=== PATIENT | male | born 1985 | race Two or more races ===

== ENCOUNTER 2024-01-10 19:58 | Outpatient (CLI) | payer SELFPAY | END 2024-01-10 19:59 | disposition home or self-care (01) | LOC: AMB 01-26 06:42 | PROVIDERS: Visit Provider Emergency Medicine Emergency Medical Services | DX: R07.89 Other chest pain (principal); M54.9 Dorsalgia, unspecified | CPT/HCPCS: A0998 ==

== ENCOUNTER 2024-01-10 23:11 | Emergency (ER) | payer SELFPAY ==
[2024-01-10 23:18] VITALS: BP 129/84; PULSE 87; RESP 16; TEMP 36.6; O2SAT 97; BMI 25.7
--- NOTE | 2024-01-11 00:06 | CRLHL7_ITS ---
For Patients: As a result of the Cures Act, medical imaging exams and procedure reports are released immediately into your electronic medical record. You may view this report before your referring provider. If you have questions, please contact your health care provider. INDICATION: Chest pain TECHNIQUE: Chest radiograph 1 view COMPARISON: None FINDINGS: Mediastinum: The mediastinum is normal in appearance. The heart silhouette is normal in size and morphology. Lung: Both lungs are unremarkable in appearance. No sign of pleural effusion seen. No pneumothorax is identified. Bone and Soft tissue: Unremarkable for age. IMPRESSION: 1. No acute cardiopulmonary disease is seen. Dictated by: Jey Cole MD @ 01/11/2024 01:02:24 (Electronically Signed)
--- OUTSIDE RECORDS SUMMARY | 2024-01-11 00:20 | XMS_ITS | Data Portability ---
Author Organization [facility] [employer] [facility] Address [address] [place] [address] [facility] [place] [id number] Assessment No assessment recorded. Plan of Treatment Reminders Order Date Submit Date Provider Last Modified By Organization Details Last Modified Time Details Appointments None recorded. Lab H pylori Ag, qual immunoassay , stool 2021 [facility] Not available 15:01:35 fecal occult blood, stool 2021 [facility] Not available 00:15:48 Referral None recorded. Procedures None recorded. Surgeries None recorded. Imaging None recorded. Medication Orders omeprazole 40 mg capsule,del ayed release [address] [facility] [place], [address] [place], [address], 18:52:52 Florajen Acidophilus 20 billion cell capsule [address] [facility] [place], [address], [place], [address], 12:32:40 Florajen Acidophilus 20 billion cell capsule [address] [facility] [place], [address], [place], [address], 15:35:56 omeprazole 40 mg capsule,del ayed release [address] [facility] [place], [address] [place], [address], 16:13:45 Patient TargetsNo targets recorded. Patient Instructions Encounter Date Encounter Id Patient Instructions Last Modified By Organization Details Last Modified Time 06/21/2021 [id number] eat slowly, chew food, avoid spicy foods, vaccine available kev Not available 06/21/2021 18:47:25 07/19/2021 [id number] continue omeprazol with Florajen kev Not available 07/19/2021 20:15:52 09/06/2021 [id number] refills available, take meds as needed, rtc prn kev Not available 09/06/2021 19:03:05 doing well kev Not available 09/06 19:03:23 Reason for Referral None Reported. Results Created Date Observation Date Name Description Value Unit Range Abnormal Flag LastModifiedBy Organization Detail LastModifiedTime Result Notes None recorded. Problems Name Status Onset Date Resolution Date Notes Provider Name and Address Organization Details Recorded Time Abdominal pain Active 07/19/19 22 Moustapha Hancock MD [address] [place], [address], [facility] [employer] 07/19/2021 20:12:39 Problem Notes None recorded. Medical Equipment None Reported. Allergies No known drug allergies Medications Name Sig Start Date Stop Date Status Note LastModified by Organization Details LastModified Time omeprazole 40 mg capsule,mariel yed release TAKE ONE CAPSULE BY MOUTH EVERY DAY active Not Available Not Available No t Available hydrocortiso ne 2.5 % topical cream 06/21 completed Not Available Not Available Not Available Florajen Acidophilus 20 billion cell capsule TAKE 1 CAPSULE BY ORAL ROUTE. 2021 active Not Available Not Available Not Avai lable Florajen Digestion 15 billion cell capsule TAKE 1 CAPSULE BY ORAL ROUTE. 2022 active Not Available Not Available Not Avai lable Vitals Date Recorded Body weight Systolic blood pressure Diastolic blood pressure Provider Name and Address Organization Details Last Updated DateTime 06/21/2021 92159.04 g 122 mm[Hg] 70 mm[Hg] Moustapha Hancock MD [address] [facility] [place], [address] [employer] 06/21/2021 18:44:14 Date Recorded Body weight Systolic blood pressure Diastolic blood pressure Provider Name and Address Organization Details Last Updated DateTime 07/19/2021 28710.22 g 107 mm[Hg] 64 mm[Hg] Moustapha Hancock MD [address] [place], [address] 07/19/2021 20:12:01 Social History None recorded. Functional Status None recorded. Mental Status None recorded. Family History Nothing Reported. Medical History No medical history recorded. Past Encounters Encounter ID Performer Location Encounter Start Date Encounter Closed Date Diagnosis/Indication Diagnosis SNOMED-CT Code [id number] [place] NP [facility] [facility] [address] [place] [address] 01/07/2020 14:31:02 01/07/2020 14:32:05 Exposure to SARS-CoV-2 [id number] Moustapha Hancock MD [facility] [address] [place] [address] 06/21/2021 18:13:57 06/21/2021 18:45:49 Mild dietary indigestion [id number] Moustapha Hancock MD [facility] [address] [place] [address] 07/19/2021 19:14:32 07/19/2021 19:33:58 Mild dietary indigestion [id number] Moustapha Hancock MD [facility] [address] [place] [id number] 09/06/2021 18:22:35 09/06/2021 20:08:03 Indigestion [id number] Health Concerns Section Related Observation LastModified by Organization Detai ls LastModified Time None Recorded Concern Status LastModified by Organization Details LastModified Time None Recorded Advance Directives Directive None Recorded Payers Encounter Date Sequence Insurance Name Policy Number Policy Jack Covered Member ID Jack Member ID Guarantor Name 01/07/2020 SLIDING FEE SCHEDULE - DISCOUNT Sal Carson 06/21/2021 SLIDING FEE SCHEDULE - DISCOUNT Sal Carson 07/19/2021 SLIDING FEE SCHEDULE - DISCOUNT Sal Carson 09/06/2021 SLIDING FEE SCHEDULE - DISCOUNT Sal Carson Notes Date Note Type Note Provider Name and Address Organization Details Recorded Time 06/21/2021 text/html HPI Notes: about a year of bloating and indigestion, constipated, no melena, no weight loss Moustapha Hancock MD [address] [place], [address], [facility] [employer] 06/21/2021 19:44:05 07/19/2021 text/html HPI Notes: Abdominal Pain Reported by patient. Notes: no magaly loss, bleeding or melena discomfort is in left upper quadrant, unrelated to foods, omeprazole hasn't helped, Moustapha Hancock MD [address] [facility] [place], [address], [facility] 07/19/2021 20:16:07 09/06/2021 text/html HPI Notes: feeling better, no weight loss Moustapha Hancock MD [address] [facility] [place], [address], [facility] 09/06/2021 19:05:09
--- OUTSIDE RECORDS SUMMARY | 2024-01-11 00:20 | XMS_ITS | Clinical Summary ---
Author Organization [facility] Address [place], [place] [address] Care Team Providers Care Vehicle Assembly Inspector Name Role Phone Mónica Delgado DO Primary Care Provider Allergies No known active allergies Medications Medication Sig Dispensed Refills Start Date End Date Status ibuprofen (ADVIL; MOTRIN) 600 mg tablet Take 600 mg by mouth 3 times daily if needed. Maximum of 3200 mg in 24 hours. Active hydrocortisone 2.5% creamIndications:Ex ternal hemorrhoid Apply topically to affected area(s) 2 times daily. 30 g 11/18/2020 Active psyllium powdIndications:Con stipation, acute Mix 1 tsp in liquid then take by mouth once daily if needed for Constipation. 1 Container 11 11/18/2020 Active Active Problems Problem Noted Date Diagnosed Date Acute medial meniscal tear 12/11/2014 Pain medication agreement 11/18/2012 Overview: Controlled substance agreement for Percocet 5/325mg 1-2 tab every 4hrs on file and signed 11/06/2012. Designated pharmacy:[email or web address] Prescribing physician: Jluis Goodwin MD and Bev Patten PA-C Diagnosis: S/P ACL reconstruction ACL tear 10/30/2012 Immunizations Name Administration Dates Next Due Tdap 10/21/2012 Social History Tobacco Use Types Packs/Day Years Used Date Smoking Tobacco: Former Cigarettes Q uit: 03/14/2011 Smokeless Tobacco: Never Tobacco Cessation:Counseling Given: Yes Alcohol Use Standard Drinks/Week Comments Not Currently 0 (1 standard drink = 0.6 oz pur e alcohol) occasional Social Connections Answer Date Recorded Frequency of Communication with Friends and Fami ly Not on file 06/11/2021 Financial Resource Strain Answer Date R ecorded Difficulty of Paying Living Expenses Not on file 06/11/2021 Difficulty of Paying Living Expenses Not on file 06/11/2021 Sex and Gender Information Value Date Recorded Sex Assigned at Not on file Gender Identity Not on file Sexual Orientation Not on file Obstetrics History Last Filed Vital Signs Vital Sign Reading Time Taken Comments Blood Pressure 106/68 11/18/2020 2:16 PM CDT Pulse 81 11/18/2020 2:16 PM CDT Temperature 36.7 ??C (98.1 ??F) 06/17/2019 4:25 PM CS T Respiratory Rate 16 06/17/2019 4:25 PM ROCKET SCIENTIST Oxygen Saturation 97% 11/18/2020 2:16 PM CDT Inhaled Oxygen Concentration - - Weight 64.4 kg (142 lb) 11/18/2020 2:16 PM CDT Height 160 cm (5' 3) 06/17/2019 4:25 PM ROCKET SCIENTIST Body Mass Index 25.15 06/17/2019 4:25 PM ROCKET SCIENTIST Plan of Treatment Health Maintenance Due Date Last Done Comments Depression screening for age 12+ 1995 HIV for age 15-65 10/07/1998 Hepatitis C screening for ag e 18-79 10/07/2001 Lipids for age 35-44 10/07/2018 BMI (ht and wt on same day) for age 18+ 06/17/2020 06/17/2019, 10/31/2016 Tetanus booster 10/21/2022 10/21/2012 COVID-19 vaccine series ( season) 2023 Influenza for age 9-49 02/10/2024 Tdap Completed 10/21/2012 Pneumococcal series for age 6-64 Aged Out No longer eligible b ased on patient's age to complete this topic Medical Devices Implanted Type Area Bag Sewer Device Identifier Shelf Expiration Date Model / Serial / Lot [id number] llartendonpresha ped10/10mm Implanted:Qty: 1 on 10/30/2012 at [facility] Explanted:at [facility] (Quantity not on file) Left: Knee [employer] 10/07/2016 [id number] / [id number] / Description:PATELLAR TENDON PRESHAPED 10/10MM Hyacinth Advance Interference Screw 8x23mm Implanted:Qty: 1 on 10/30/2012 at [facility] Left: Knee [id number] / / [id number] Description:HYACINTH ADVANCE INTERFERENCE SCREW 8X23MM Hyacinth Advance Interference Screw 9x23mm Implanted:Qty: 1 on 10/30/2012 at [facility] Left: Knee [id number] / / [id number] Description:HYACINTH ADVANCE INTERFERENCE SCREW 9X23MM [id number] 034tendon 1-51uyr21-08.5mm Mtf Patella W/Bone Blocks [[id number]] Implanted:Qty: 1 on 12/17/2014 at [facility] Left: Knee Musculoskeletal [employer]plant 12/19/2018 [id number]# / [id number] / Screw Soft Tissue 9x25mm Genesys Matryx Interference - [id number] Implanted:Qty: 1 on 12/17/2014 at [facility] Left: Knee [employer] [id number] / / [id number] Screw Soft Tissue 9x25mm Genesys Matryx Interference - [id number] Implanted:Qty: 1 on 12/17/2014 at [facility] Left: Knee [employer] [id number]# / / [id number] Advance Directives * Full Code (Latest Code Status on File) Date Activated Date Inactivated Comments 12/17/2014 12:05 PM 12/17/2014 3:23 PM Question Answer Comments Code Status Discussion: Per Existing Order * Full Code Date Activated Date Inactivated Comments 12/17/2014 8:24 AM 12/17/2014 12:05 PM * Full Code Date Activated Date Inactivated Comments 10/30/2012 12:41 PM 10/30/2012 5:02 PM * Full Code Date Activated Date Inactivated Comments 10/30/2012 9:10 AM 10/30/2012 12:41 PM Care Teams Vehicle Assembly Inspector Relationship Specialty Start Date End Date Mónica Delgado DO [address] [place] [address] PCP - General Family Practice 09/30/12
--- NOTE | 2024-01-11 00:21 | ED_ITS ---
HPI - General Adult General Chief complaint: Back Injury/Pain Stated complaint: left arm numbness Time Seen by Provider: 01/10/24 23:55 History of Present Illness HPI narrative: Patient is a 38-year-old gentleman comes in today with a host of symptoms ranging from knots in his back to tingling in his hands to chest pain earlier today to palpitations to general malaise. Patient's symptoms have been going on for quite some time but he was seen by the EMS crew approximately 4 hours ago and was treated and released for anxiety. He presents with persistence of his symptoms it would like further evaluation of all of his symptoms at this time. He is not able to say was bothering him the most. He seems frustrated with our encounter and states that he would at least like to be prescribed anti- inflammatories. He is seen with the assistance of the jet piercer operator. The tingling in his hands seem to coming go and very based on the amount of agitation that he is having. His chest pain is nondescript and poorly localizable. Palpitations are not currently present. He does state that he has a primary doctor and is willing to follow up with them if need be. Related Data Home Medications ?Medication ?Instructions ?Recorded ?Confirmed No Known Home Medications 01/10/24 01/10/24 Allergies Allergy/AdvReac Type Severity Reaction Status Date / Time No Known Drug Allergies Allergy Verified 01/10/24 23:28 Review of Systems Status of ROS: Reports: 10 or more systems reviewed and unremarkable except as noted in History and below Exam Narrative: Exam Narrative: EXAM GENERAL: Patient appears comfortable and well. Somewhat anxious. EYES: No scleral icterus. ENT: Tympanic membranes and oropharynx normal. THYROID: no thyroid nodules or thyromegaly. LYMPH: No supraclavicular or cervical lymphadenopathy. SKIN: Visible skin seen during exam normal or with benign process only. EXT: No dependent lower extremity pedal edema. HEART: Regular rate and rhythm with no murmurs, rubs, or gallops. LUNGS: Clear to auscultation bilaterally with no crackles or wheezes. ABD: Soft, non tender, non distended. PSYCH: Good eye contact, speech is not pressured. Const: Vital Signs, click to edit/add: Vital Signs - 24 hr 01/10/24 23:18 Temperature 98 F Pulse Rate [Pulse Oximeter] 87 Respiratory Rate 16 Blood Pressure [Ri ght Upper Arm] 129/84 Pulse Oximetry 97 Oxygen Delivery Me thod Room Air Course Course ED Course: EKG troponin chest x-ray pending. Vital Signs Vital signs: Initial Vital Signs Temperature 98 F 01/10/24 23:18 Temperature Source Temporal Artery Scan 01/10/24 23:18 Pulse Rate 87 01/10/24 23:18 Respiratory Rate 16 01/10/24 23:18 Blood Pressure 129/84 01/10/24 23:18 Blood Pressure Mean 99 01/10/24 23:18 Blood Pressure Position Sitting 01/10/24 23:18 Pulse Oximetry 97 01/10/24 23:18 Oxygen Delivery Method Room Air 01/10/24 23:18 Vital Signs Temperature 98 F 01/10/24 23:18 Pulse Rate 87 01/10/24 23:18 Respiratory Rate 16 01/10/24 23:18 Blood Pressure 129/84 01/10/24 23:18 Pulse Oximetry 97 01/10/24 23:18 Oxygen Delivery Method Room Air 01/10/24 23:18 Temperature 98 F 01/10/24 23:18 Pulse Rate 87 01/10/24 23:18 Respiratory Rate 16 01/10/24 23:18 Blood Pressure 129/84 01/10/24 23:18 Pulse Oximetry 97 01/10/24 23:18 Oxygen Delivery Method Room Air 01/10/24 23:18 Medical Decision Making MDM Narrative Medical decision making narrative: EKG shows normal sinus rhythm no acute abnormalities chest x-ray is normal upon my review. Troponin is negative. At this time I do not find any significant diagnosis. He has a normal exam and normal vital signs. I did prescribe Naprosyn 500 mg twice a day as needed and recommended primary care follow-up. Differential diagnosis includes but not limited to anxiety acute myocardial infarction chronic neck and back pain pleurisy pneumothorax. Lab Data Labs: Lab Results 01/11/24 Range/Units 00:06 POC Troponin I 0.00 L (0.01-0.04) ng/ml Discharge Plan Discharge Clinical Impression: Back pain Patient Disposition: Home, Self-Care Condition: Stable Instructions: Back Pain (ED) Additional Instructions: Aleve nuwd-aib-oiqylot 500 mg or 2 tablets twice daily Ice Tylenol Follow-up with your doctor as needed. Activity Level: No Restrictions Discharge Diet: Regular Prescriptions: No Action No Known Home Medications Follow Up/Referrals: Provider,Not a Local [Primary Care Provider] - Stand Alone Forms: [employer] Instructions
== END 2024-01-11 01:07 | disposition home or self-care (01) ==
PROVIDERS: Emergency Provider Internal Medicine
DX: M54.9 Dorsalgia, unspecified (principal)
CPT/HCPCS: 71045; 84484; 99283

== ENCOUNTER 2024-12-27 11:22 | Emergency (ER) | payer BC, SELFPAY ==
--- OUTSIDE RECORDS SUMMARY | 2024-12-27 11:23 | XMS_ITS | Clinical Summary ---
Author Organization [facility] Address [address] [place] [address] Care Team Providers Care Compensation Specialist Name Role Phone None Reported, Pcp Primary Care Provider Unavail able Source Comments Patient records contain information from all sites at [facility]. For routine questions regarding patient records, call [phone] during business hours, M-F 8:00 AM - 5:00 PM Central Time. Record requests for emergency care only can be directed to [phone] at any time.[facility] Allergies No known active allergies Medications ibuprofen 600 mg tablet Take 600 mg by mouth 3 (three) times a day as needed. Active L.acidoph-B.ani malis-B.longum (Florajen Digestion) 15 billion cell per capsule 1 capsule daily. 09/27/2022 Active acetaminophen (TylenoL) 500 mg capsule Take by mouth every 6 (six) hours as needed for pain. Active naproxen (Naprosyn) 500 mg tablet Take 1 tablet (500 mg total) by mouth 2 (two) times a day with meals for 14 days. 28 tablet 01/13/2024 5:40 AM CDT 01/13/2024 Active Active Problems Problem Noted Date Diagnosed Date Abdominal Pain 07/18/2021 Social History Tobacco Use Types Packs/Day Years Used Date Smoking Tobacco: Never Smokeless Tobacco: Never Tobacco Cessation:Counseling Given: Not Answered Alcohol Use Standard Drinks/Week Comments Yes 0 (1 standard drink = 0.6 oz pur e alcohol) ocassional use Sex and Gender Information Value Date Recorded Sex Assigned at Not on file Legal Sex Male 11:15 AM CDT Gender Identity Not on file Sexual Orientation Not on file Last Filed Vital Signs Vital Sign Reading Time Taken Comments Blood Pressure 105/78 01/13/2024 5:14 AM CDT Pulse 78 01/13/2024 5:14 AM CDT Temperature 36.8 C (98.2 F) 01/13/2024 2:27 AM CDT Respiratory Rate 18 01/13/2024 5:14 AM CDT Oxygen Saturation 97% 01/13/2024 5:14 AM CDT Inhaled Oxygen Concentration - - Weight 66.6 kg (146 lb 13.2 oz) 01/13/2024 2:24 AM CDT Height - - Body Mass Index - - Plan of Treatment Health Maintenance Due Date Last Done Comments HIV Screening 1983 Hepatitis C Screening 1983 Lipid (Cholesterol) Screening 1983 Hepatitis B Vaccines (1 of 3 - 19+ 3-dose series) 10/07/2002 DTaP,Tdap,and Td Vaccines (2 - Td or Tdap) 10/21/2022 10/21/2012 COVID-19 Vaccine (1 - 2023-2 5 season) 2024 Depression Screening (Annual PHQ-2) 06/11/2024 Influenza Vaccine (#1) 2025 HPV Vaccines Aged Out No longer eligi ble based on patient's age to complete this topic IPV Vaccines Aged Out No longer eligi ble based on patient's age to complete this topic Pneumococcal vaccine (0-49 years) Aged Out No longer eligible based on patient's age to complete this topic Care Teams Compensation Specialist Relationship Specialty Start Date End Date None Reported, Pcp PCP - General Family Medicine 01/13/24
--- OUTSIDE RECORDS SUMMARY | 2024-12-27 11:23 | XMS_ITS | Clinical Summary ---
Author Organization [place] Address [address] [place] [address] Care Team Providers Care Import Export Coordinator Name Role Phone No Ref-Primary, Physician Primary Care Provider Allergies No known active allergies Medications hydrOXYzine HCl (ATARAX) 25 MG tablet Take 1-2 tablets (25-50 mg) by mouth 3 times daily as needed for anxiety 30 tablet 01/20/2024 Active Social History Tobacco Use Types Packs/Day Years Used Date Smoking Tobacco: Never Assessed Adolescent Education Answer Date Record ed Getting School Help Needed Not on file 01/19 Sex and Gender Information Value Date Recorded Sex Assigned at Not on file Legal Sex Male 11:03 AM CDT Gender Identity Not on file Sexual Orientation Not on file Last Filed Vital Signs Vital Sign Reading Time Taken Comments Blood Pressure 127/89 01/20/2024 1:47 PM CDT Pulse 83 01/20/2024 1:47 PM CDT Temperature 36.3 C (97.3 F) 01/20/2024 1:47 PM CDT Respiratory Rate 16 01/20/2024 1:47 PM CDT Oxygen Saturation 99% 01/20/2024 1:47 PM CDT Inhaled Oxygen Concentration - - Weight 65.3 kg (144 lb) 01/20/2024 12:08 PM CDT Height 160 cm (5' 3) 01/20/2024 12:08 PM CDT Body Mass Index 25.51 01/20/2024 12:08 PM CDT Plan of Treatment Health Maintenance Due Date Last Done Comments ADVANCE CARE PLANNING 1985 ANNUAL REVIEW OF HM ORDERS 1985 DIABETES SCREENING 1983 YEARLY PREVENTIVE VISIT 10/07/1986 HIV SCREENING 10/07/1998 HEPATITIS C SCREENING 10/07/2001 HEPATITIS B VACCINE (1 of 3 - 19+ 3-dose series) 10/07/2002 DTAP/TDAP/TD VACCINE (2 - Td or Tdap) 10/21/2022 10/21/2012 LIPID 2023 COVID-19 VACCINE (1 - 2023-2 5 season) 2024 PHQ-2 (once per calendar year) 2024 INFLUENZA VACCINE (#1) 2025 ZOSTER VACCINE (1 of 2) 10/07/2033 HPV VACCINE Aged Out No longer eligi ble based on patient's age to complete this topic MENINGITIS VACCINE Aged Out No longer eligible based on patient's age to complete this topic PNEUMOCOCCAL VACCINE: PEDIAT RICS (0 to 5 YEARS) AND AT-RISK PATIENTS (6 to 49 YEARS) Aged Out No longer eligi ble based on patient's age to complete this topic Care Teams Import Export Coordinator Relationship Specialty Start Date End Date No Ref-Primary, Physician PCP - General 01/20/24
--- OUTSIDE RECORDS SUMMARY | 2024-12-27 11:23 | XMS_ITS | Clinical Summary ---
Author Organization [facility] Address [address] [place] [address] Care Team Providers Care Agricultural Education Professor Name Role Phone Mónica Delgado DO Primary Care Provider [phone] Allergies No known active allergies Medications Florajen Digestion 15 billion cell cap Take 1 Capsule by mouth once daily. 3 Active hydrOXYzine HCL (ATARAX) 25 mg tabletIndications:P anic attack Take 1 Tablet (25 mg) by mouth every 6 hours if needed for Anxiety. 60 Tablet 3 4 Active levothyroxine 50 mcg tabletIndications:S ubclinical hypothyroidism Take 1 Tablet (50 mcg) by mouth before breakfast. 60 Tablet 5 Active Active Problems Problem Noted Date Diagnosed Date Subclinical hypothyroidism 11/12/2024 Overview (11/12/2024): TSH 8.39 T4 0.9 50mcg levothyroxine started 11/12/2024 Acute medial meniscal tear 12/11/2014 Pain medication agreement 11/18/2012 Overview (11/18/2012): Controlled substance agreement for Percocet 5/325mg 1-2 tab every 4hrs on file and signed 11/06/2012. Designated pharmacy:[facility] Prescribing physician: Jluis Goodwin MD and Bev Ptaten PA-C Diagnosis: S/P ACL reconstruction ACL tear 10/30/2012 Encounters Date Type Department Care Team Description 11/12/2024 1:25 PM CDT Office Visit [facility] [address] [address] Abelino Lam PA Results (Thyroid level results.) 11/12/2024 Travel 10/30/2024 Telephone [facility] [address] [facility] [place] [address] Abelino Lam PA Results 10/29/2024 1:00 PM CDT Office Visit [facility] [address] [facility] [place] [address] Abelino Lam PA Hand Pain/problem (numbness in both hands- started about 1.5 weeks ago, no swelling and no injury, just feels pressure) 10/29/2024 Travel 10/29/2024 Nurse Triage [facility] [address] [place] [address] Mónica Delgado, Hand Pain/problem (Numbness/tingling when he lays down) from Last 3 Months Immunizations Immunization Administration Dates Next Due Tdap 10/21/2012 Family History Medical History Relation Name Comments No Known Problems Father No Known Problems Mother Relation Name Status Comments Father Alive Maternal Grandfather Maternal Grandmother Mother Alive Paternal Grandfather Paternal Grandmother Social History Tobacco Use Types Packs/Day Years Used Date Smoking Tobacco: Former Cigarettes Q uit: 03/14/2011 Smokeless Tobacco: Never Tobacco Cessation:Counseling Given: Yes Alcohol Use Standard Drinks/Week Comments Not Currently 0 (1 standard drink = 0.6 oz pur e alcohol) occasional PHQ-2 Answer Date Recorded PHQ-2 TOTAL SCORE 6 02/25/2024 Social Connections Answer Date Recorded Do you often feel lonely or isolated from those around you? 0 02/25/2024 Financial Resource Strain Answer Date R ecorded Difficulty of Paying Living Expenses 2 02/25/2024 Difficulty of Paying Living Expenses 1 02/25/2024 Food Insecurity Answer Date Recorded Do you worry your food will run out before you are able to buy more? 1 02/25/2024 Transportation Needs Answer Date Record ed Does lack of transportation keep you from medica l appointments? 1 02/25/2024 Does lack of transportation keep you from work, meetings or getting things that you need? 1 02/25/2024 Housing Stability Answer Date Recorded What is your housing situation today? 1 02/25/2024 Utilities Answer Date Recorded Do you have trouble paying f or utilities (for example, heat, electricity, water, phone)? 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 Respiratory Rate 14 03/13/2024 8:59 AM CDT Oxygen Saturation 97% 11/12/2024 1:22 PM CDT Inhaled Oxygen Concentration - - Weight 68.7 kg (151 lb 8 oz) 11/12/2024 1:22 PM CDT Height 161.3 cm (5' 3.5) 10/29/2024 1:14 PM CDT Body Mass Index 26.42 10/29/2024 1:14 PM CDT Plan of Treatment Health Maintenance Due Date Last Done Comments HIV for age 15-65 10/07/1998 Hepatitis C screening for age 18-79 10/07/2001 Hepatitis B series for 19+ (1 of 3 - 19+ 3-dose series) 10/07/2002 Lipids for age 35-44 10/07/2018 Tetanus booster 10/21/2022 10/21/2012 COVID-19 vaccine series ( season) 2024 Influenza Vaccine (#1) 2025 Depression screening for age 12+ 02/26/2025 02/27/2024, 02/25/2024 BMI (ht and wt on same day) for age 18+ 10/29/2025 10/29/2024, 02/25/2024, 06/17/2019, Additional history exists Pneumococcal series for age 6-49 Aged Out No longer eligible based on patient's age to complete this topic Medical Devices Implanted Type Area Building Illuminating Engineer Device Identifier Shelf Expiration Date Model / Serial / Lot [id number] llartendonpresha ped10/10mm Implanted:Qty: 1 on 10/30/2012 at [facility] Explanted:at [facility] (Quantity not on file) Left: Knee [employer] 10/07/2016 [id number] / [id number] / Description:PATELLAR TENDON PRESHAPED 10/10MM Hyacinth Advance Interference Screw 8x23mm Implanted:Qty: 1 on 10/30/2012 at [facility] Left: Knee [id number] / / [id number] Description:HYACINTH ADVANCE INTERFERENCE SCREW 8X23MM Hyacinth Advance Interference Screw 9x23mm Implanted:Qty: 1 on 10/30/2012 at [facility] Left: Knee [id number] / / [id number] Description:HYACINTH ADVANCE INTERFERENCE SCREW 9X23MM [id number] 034tendon 4-23lgy71-14.5mm Mtf Patella W/Bone Blocks [[id number]] Implanted:Qty: 1 on 12/17/2014 at [facility] Left: Knee [employer] 12/19/2018 [id number]# / [id number] / Screw Soft Tissue 9x25mm Genesys Matryx Interference - [id number] Implanted:Qty: 1 on 12/17/2014 at [facility] Left: Knee [employer] [id number] / / [id number] Screw Soft Tissue 9x25mm Genesys Matryx Interference - [id number] Implanted:Qty: 1 on 12/17/2014 at [facility] Left: Knee Conmed [employer] [id number]# / / [id number] Procedures Procedure Name Priority Date/Time Associated Diagnosis Comments T4,FREE Routine 10/29/2024 1:53 PM CDT TSH WITH REFLEX Routine 10/29/2024 1:53 PM CDT Subclinical hypothyroidism CBC WITH AUTO DIFFERENTIAL Routine 10/29/2024 1:53 PM CDT Subclinical hypothyroidism Fatigue, unspecified type HEMOGLOBIN A1C Routine 10/29/2024 1:53 PM CDT Fatigue, unspecified type BASIC METABOLIC PANEL Routine 10/29/2024 1:53 PM CDT Subclinical hypothyroidism Fatigue, unspecified type from Last 3 Months Results * HEMOGLOBIN A1C (10/29/2024 1:53 PM CDT) HEMOGLOBIN A1C 5.6 <5.7 % [facility] Comment: For the purpose of screening for the presence of diabetes: <5.7% Consistent with the absence of diabetes 5.7-6.4% Consistent with increased risk for diabetes (prediabetes) > or =6.5% Consistent with diabetes This assay result is consistent with a decreased risk of diabetes. Currently, no consensus exists regarding use of hemoglobin A1c for diagnosis of diabetes in children. According to [place] Diabetes Association (ADA) guidelines, hemoglobin A1c <7.0% represents optimal control in non- diabetic patients. Different metrics may apply to specific patient populations. Standards of Medical Care in Diabetes(ADA). Blood BLOOD SPECIMEN / Unknown 10/29/2024 1:53 PM CDT 10/29/2024 1:54 PM CDT Abelino PATIÑO CHEMISTRY Audra l Result Performing Organization Address City/[facility]/ZIP Co de Phone Number [employer] [facility] [address] [place] [address], [place] [phone] [facility] [address] [place] [address] * (ABNORMAL) TSH WITH REFLEX (10/29/2024 1:53 PM CDT) TSH W/REFLEX TO FT4 8.39(H) 0.40 - 4.50 mIU/L [facility] Blood BLOOD SPECIMEN / Unknown 10/29/2024 1:53 PM CDT 10/29/2024 1:54 PM CDT Abelino PATIÑO CHEMISTRY Audra l Result [employer] [facility] [address] [place] [address], [place] [phone] [facility] [address] [place] [address] * CBC AND DIFFERENTIAL (10/29/2024 1:53 PM CDT) [facility] WHITE BLOOD CELL COUNT 6.9 3.8 - 10.8 Thousand/u L [facility] RED BLOOD CELL COUNT 4.79 4.20 - 5.80 Million/uL [facility] HEMOGLOBIN 14.6 13.2 - 17.1 g/dL [facility] HEMATOCRIT 44.8 38.5 - 50.0 % [facility] MCV 93.5 80.0 - 100.0 fL [facility] MCH 30.5 27.0 - 33.0 pg [facility] MCHC 32.6 32.0 - 36.0 g/dL [facility] Comment: For adults, a slight decrease in the calculated MCHC value (in the range of 30 to 32 g/dL) is most likely not clinically significant; however, it should be interpreted with caution in correlation with other red cell parameters and the patient's clinical condition. RDW 12.7 11.0 - 15.0 % [facility] PLATELET COUNT 296 140 - 400 Thousand/u L [facility] MPV 11.6 7.5 - 12.5 fL [facility] ABSOLUTE NEUTROPHILS 4,457 1,500 - 7,800 cells/uL [facility] ABSOLUTE LYMPHOCYTES 1,753 850 - 3,900 cells/uL [facility] ABSOLUTE MONOCYTES 580 200 - 950 cells/uL [facility] ABSOLUTE EOSINOPHILS 62 15 - 500 cells/uL [facility] ABSOLUTE BASOPHILS 48 0 - 200 cells/uL [facility] NEUTROPHILS 64.6 % [facility] LYMPHOCYTES 25.4 % [facility] MONOCYTES 8.4 % [facility] EOSINOPHILS 0.9 % [facility] BASOPHILS 0.7 % [facility] Blood BLOOD SPECIMEN / Unknown 10/29/2024 1:53 PM CDT 10/29/2024 1:54 PM CDT Abelino PATIÑO HEMATOLOGY Audra l Result [employer] [facility] [address] [place] [address], [place] [phone] [facility] [address] [place] [address] * T4,FREE (10/29/2024 1:53 PM CDT) T4, FREE 0.9 0.8 - 1.8 ng/dL [facility] 10/29/2024 1:53 PM CDT 10/29/2024 1:54 PM CDT Abelino PATIÑO CHEMISTRY Audra l Result Performing Organization Address City/[facility]/ZIP Co de Phone Number [employer] [facility] [address] [place] [address], [place] [phone] [facility] [address] [place] [address] * BASIC METABOLIC PANEL (10/29/2024 1:53 PM CDT) GLUCOSE 86 65 - 99 mg/dL [facility] Comment: Fasting reference interval UREA NITROGEN (BUN) 12 7 - 25 mg/dL [facility] CREATININE 0.70 0.60 - 1.29 mg/dL [facility] EGFR 119 > OR = 60 mL/min/1. 73m2 [facility] BUN/CREATININE RATIO SEE NOTE: (calc) [facility] Comment: Not Reported: BUN and Creatinine are within reference range. SODIUM 139 135 - 146 mmol/L [facility] POTASSIUM 4.2 3.5 - 5.3 mmol/L [facility] CHLORIDE 103 98 - 110 mmol/L [facility] CARBON DIOXIDE 27 20 - 32 mmol/L [facility] ELECTROLYTE BALANCE 9 7 - 17 mmol/L (calc) [facility] CALCIUM 9.3 8.6 - 10.3 mg/dL [facility] Blood BLOOD SPECIMEN / Unknown 10/29/2024 1:53 PM CDT 10/29/2024 1:54 PM CDT Abelino PATIÑO CHEMISTRY Audra l Result [facility] [address] [place] [address], [facility] [address] [place] [address] from Last 3 Months Insurance [facility] Advance Directives * Full Code (Latest Code [...] 9:10 AM 10/30/2012 12:41 PM Care Teams Agricultural Education Professor Relationship Specialty Start Date End Date Mónica Delgado [place] [address] PCP - General Family Practice 09/30/12
[2024-12-27 11:34] VITALS: BP 127/80; PULSE 72; RESP 18; TEMP 37.3; O2SAT 99; BMI 27.0
[2024-12-27] MEDS: lidocaine HCL 2 % MULTIDOSE 20 ML VIAL INJECTION (11:55)
--- NOTE | 2024-12-27 12:02 | ED.GENADULT ---
HPI - General Adult General Chief complaint: Laceration/Wound Stated complaint: right fourth finger laceration Time Seen by Provider: 12/27/24 11:42 Source: patient Mode of arrival: ambulatory Limitations: no limitations History of Present Illness HPI narrative: 39-year-old male presenting today with a laceration of the right hand. Suffered while he was at work today piece of machinery caught his skin. Unsure of his last tetanus shot. Denies any other injury. Related Data Home Medications ?Medication ?Instructions ?Recorded ?Confirmed levothyroxine 50 mcg tablet 50 mcg PO QAM 12/27/24 12/27/24 Allergies Allergy/AdvReac Type Severity Reaction Status Date / Time No Known Drug Allergies Allergy Verified 03/24/24 08:13 Review of Systems Status of ROS: Reports: 6 or more systems reviewed and unremarkable except as noted in History and below Exam Narrative: Exam Narrative: Well-nourished well-developed patient in no acute distress. Alert and oriented. Answers questions appropriately. Mood and affect are appropriate. Thoughts are goal oriented and rational. No tangential or magical thinking noted. Patient speaks in full sentences without needing to catch his breath. HEENT: Normocephalic atraumatic. Pupils are equally round reactive to light. Extraocular muscles are intact. Conjunctivae are moist without any icterus noted. Moist mucous membranes. On the palmar surface of the hand at the base of the 4th digit home the right patient has an area approximately 10 mm in diameter where the skin has been completely avulsed. The center of this there is no skin left and there is just subcutaneous tissue this area is approximately 5 mm in diameter. Const: Vital Signs, click to edit/add: Vital Signs - 24 hr 12/27/24 11:34 Temperature 99.2 F Pulse Rate [Right Pulse Oximeter] 72 Respiratory Rate 18 Blood Pressure [Ri ght Upper Arm] 127/80 Pulse Oximetry 99 Oxygen Delivery Me thod Room Air Course Course ED Course: Area was cleaned in the usual sterile manner and anesthetized with lidocaine. Four sutures with 3-0 Ethilon were placed to bring the skin back together with good skin approximation. No significant stress on the skin noted. Patient has full range of motion of all his fingers. Last tetanus unknown, this was updated today. Vital Signs Vital signs: Initial Vital Signs Temperature 99.2 F 12/27/24 11:34 Temperature Source Temporal Artery Scan 12/27/24 11:34 Pulse Rate 72 12/27/24 11:34 Pulse Rhythm Regular 12/27/24 11:34 Pulse Strength 3+ Normal 12/27/24 11:34 Respiratory Rate 18 12/27/24 11:34 Blood Pressure 127/80 12/27/24 11:34 Blood Pressure Mean 95 12/27/24 11:34 Blood Pressure Position Sitting 12/27/24 11:34 Pulse Oximetry 99 12/27/24 11:34 Oxygen Delivery Method Room Air 12/27/24 11:34 Vital Signs Temperature 99.2 F 12/27/24 11:34 Pulse Rate 72 12/27/24 11:34 Respiratory Rate 18 12/27/24 11:34 Blood Pressure 127/80 12/27/24 11:34 Pulse Oximetry 99 12/27/24 11:34 Oxygen Delivery Method Room Air 12/27/24 11:34 Temperature 99.2 F 12/27/24 11:34 Pulse Rate 72 12/27/24 11:34 Respiratory Rate 18 12/27/24 11:34 Blood Pressure 127/80 12/27/24 11:34 Pulse Oximetry 99 12/27/24 11:34 Oxygen Delivery Method Room Air 12/27/24 11:34 Medications Administered Medications: Discontinued Medications Generic Name Dose Route Start Last Admin Trade Name Sree PRN Reason Stop Dose Admin Lidocaine HCl 20 ml 12/27/24 11:48 12/27/24 11:55 Lidocaine Hcl 2 % Multidose 20 Ml Vial INJECTION 12/27/24 11:49 20 ml ONCE ONE Administration Medical Decision Making MDM Narrative Medical decision making narrative: Laceration to the hand, treated per above. Discharge Plan Discharge Clinical Impression: Laceration Patient Disposition: Home, Self-Care Condition: Improved Additional Instructions: Keep wound clean and dry. Do not soak such as taking baths, swimming or doing dishes. Follow-up in approximately 1 week for suture removal with your primary care provider. Watch for signs and symptoms of infection including increasing redness of the area, purulent drainage, or fever. If this occurs follow-up right away with your doctor or return to the ER. Change dressing daily. Prescriptions: No Action levothyroxine 50 mcg tablet 50 mcg PO QAM Follow Up/Referrals: Provider,Not a Local [Primary Care Provider, Family Practice] Stand Alone Forms: [facility] Info Instructions
[2024-12-27] MEDS: TETANUS/DIPHTH/PERTUSSIS 0.5 ML SYRINGE IM (12:21)
== END 2024-12-27 12:54 | disposition home or self-care (01) ==
LOC: ED 12:19
PROVIDERS: Emergency Provider Family Medicine
DX: S61.411A Laceration without foreign body of right hand, initial encounter (principal); W31.89XA Contact with other specified machinery, initial encounter
CPT/HCPCS: 12001; 90471; 90715; 99283; 99284